=== PATIENT | female | born 1970 | race Two or more races ===

== ENCOUNTER → 2021-08-23 | Outpatient (CLI) | payer MEDICARE, MEDICAID | END | disposition home or self-care (01) | LOC: RADMN 10:07 | PROVIDERS: ATTEND Internal Medicine Geriatric Medicine | DX: M43.16 Spondylolisthesis, lumbar region (principal); M41.86 Other forms of scoliosis, lumbar region; M47.816 Spondylosis without myelopathy or radiculopathy, lumbar region; I70.8 Atherosclerosis of other arteries; I70.213 Atherosclerosis of native arteries of extremities with intermittent claudication, bilateral legs; R29.890 Loss of height; M54.50 Low back pain, unspecified; M25.551 Pain in right hip | CPT/HCPCS: 72100; 73502 ==